=== PATIENT | female | born 1950 | race Caucasian/White ===

== ENCOUNTER 2018-04-21 17:20 | Emergency (ER) | payer MEDICARE, OTHER ==
[2018-04-21 18:27] LABS: BILIRUBIN,URINE NEGATIVE (NEGATIVE); GLUCOSE, URINE (UA) NEGATIVE (NEGATIVE); KETONES,URINE (UA) NEGATIVE (NEGATIVE); LEUKOCYTE ESTERASE, URINE SMALL (NEGATIVE); NITRITE,URINE NEGATIVE (NEGATIVE); OCCULT BLOOD,URINE NEGATIVE (NEGATIVE); PH,URINE 5.5 PH (5.0-7.5); PROTEIN,URINE NEGATIVE (NEGATIVE); UROBILINOGEN,URINE 0.2 (NORMAL) E.U./dL (NORMAL)
[2018-04-21 18:28] LABS: CLARITY,URINE CLEAR (CLEAR)
[2018-04-21 18:44] LABS: RBC,URINE 0-5 /HPF (0-5); SQUAMOUS EPITHELIAL CELL,UR FEW Squamous (<= Few)
[2018-04-21 18:45] LABS: BACTERIA,URINE Rare /HPF (None Seen)
--- NOTE | 2018-04-21 18:49 | ED Physician Documentation ---
PD HPI NVD - Stated complaint Stated Complaint: VOM/TONI - Chief complaint Chief Complaint: Abd Pain - History obtained from History obtained from: Patient, Family - History of Present Illness Timing - onset: Yesterday (This is a 67-year-old woman with history of multiple myeloma undergoing chemotherapy and also type 2 diabetes on Lantus who presents with a days worth of vomiting and diarrhea. There is no associated abdominal pain or fevers. She feels generally weak.) Review of Systems Ten Systems: 10 systems reviewed and negative Constitutional: reports: Fatigue, Sweats. denies: Fever, Chills Respiratory: denies: Dyspnea, Cough GI: reports: Nausea, Vomiting, Diarrhea. denies: Abdominal Pain PD PAST MEDICAL HISTORY - Past Medical History Cardiovascular: Hypertension, High cholesterol Respiratory: None Endocrine/Autoimmune: Type 2 diabetes, HyPOthyroidism GI: None G[employer]: None : None HEENT: None Psych: None Musculoskeletal: None Derm: None - Past Surgical History Past Surgical History: No Ortho: Arthroscopic surgery - Present Medications Home Medications: Ambulatory Orders Medication Instructions Recorded Confirmed Insulin Glargine,Hum.rec.anlog 32 unit SQ QPM 12/09/12 01/08/16 [Lantus] oxyCODONE [Roxicodone] 5 - 10 mg PO Q6H PRN #30 tablet 12/09/12 01/08/16 diphenhydrAMINE [Benadryl] 25 mg PO Q4HR PRN #10 capsule 01/09/16 Cephalexin [Keflex] 500 mg PO QID #28 capsule 04/21/18 Dexamethasone 04/21/18 04/21/18 Dulaglutide [Trulicity] 04/21/18 Lenalidomide [Revlimid] 04/21/18 Loperamide [Imodium] 2 mg PO QID PRN #10 capsule 04/21/18 Ondansetron Odt [Zofran] 4 mg TL Q6H PRN #10 tablet 04/21/18 metFORMIN [Glucophage] 04/21/18 04/21/18 - Allergies Allergies/Adverse Reactions: Allergies Allergy/AdvReac Type Severity Reaction Status Date / Time No Known Drug Allergies Allergy Verified 04/21/18 17:49 - Social History Does the pt smoke?: No Smoking Status: Never smoker Does the pt drink ETOH?: No Does the pt have substance abuse?: No - Immunizations Immunizations are current?: No Immunizations: Other immun not current - POLST Patient has POLST: No PD ED PE NORMAL - Vitals Vital signs reviewed: Yes - General General: Alert and oriented X 3, No acute distress - HEENT HEENT: PERRL, EOMI - Neck Neck: Supple, no meningeal sign, No bony TTP - Cardiac Cardiac: RRR, No murmur - Respiratory Respiratory: No respiratory distress, Clear bilaterally - Abdomen Abdomen: Soft, Non tender - Neuro Neuro: Alert and oriented X 3, Normal speech Results - Vitals Vitals: Vital Signs - 24 hr 04/21/18 17:47 Temperature 36.9 C Heart Rate 95 Respiratory 15 Rate Blood Pressure 131/91 H O2 Saturation 96 Oxygen O2 Source Room air - Labs Labs: Laboratory Tests 04/21/18 04/21/18 04/21/18 18:00 19:10 19:20 WBC 3.7 L RBC 4.06 L Hgb 13.4 Hct 39.3 MCV 96.9 MCH 33.1 H MCHC 34.2 RDW 16.9 H Plt Count 171 MPV 8.1 Neut # (Auto) 1.6 Lymph # (Auto) 1.2 L [place] # (Auto) 0.6 Eos # (Auto) 0.3 Baso # (Auto) 0.0 Absolute Nucleated RBC 0.00 Nucleated RBC % 0.0 Sodium 133 L Potassium 3.4 L Chloride 97 L Carbon Dioxide 27 Anion Gap 9.0 BUN 21 H Creatinine 1.0 Estimated GFR (MDRD) 56 L Glucose 158 H Calcium 8.8 Total Bilirubin 0.7 AST 20 ALT 26 Alkaline Phosphatase 47 Total Protein 6.3 L Albumin 3.7 Globulin 2.6 Albumin/Globulin Ratio 1.4 Lipase 68 H Urine Color YELLOW Urine Clarity CLEAR Urine pH 5.5 Ur Specific [place] 1.020 Urine Protein NEGATIVE Urine Glucose (UA) NEGATIVE Urine Ketones NEGATIVE Urine Occult Blood NEGATIVE Urine Nitrite NEGATIVE Urine Bilirubin NEGATIVE Urine Urobilinogen 0.2 (NORMAL) Ur Leukocyte Esterase SMALL H Urine RBC 0-5 Urine WBC 6-10 H Ur Squamous Epith Cells FEW Squamous Urine Bacteria Rare Ur Microscopic Review INDICATED Urine Culture Comments INDICATED PD MEDICAL DECISION MAKING - ED course ED course: This is a 67-year-old woman undergoing chemotherapy presents with vomiting and diarrhea without abdominal pain. She has a benign abdominal examination. After the administration of IV fluids she was still feeling a little weak but the nausea and diarrhea had abated and she passed an oral challenge. Departure - Departure Disposition: 01 Home, Self Care Clinical Impression: Vomiting, Diarrhea, Urinary tract infection Condition: Good Record reviewed to determine appropriate education?: Yes Instructions: ED Nausea Vomiting Prescriptions: Cephalexin [Keflex] 500 mg PO QID #28 capsule Loperamide [Imodium] 2 mg PO QID PRN #10 capsule PRN Reason: Diarrhea Ondansetron Odt [Zofran] 4 mg TL Q6H PRN #10 tablet PRN Reason: Nausea / Vomiting Comments: We will culture your urine, the results should be done in 48-72 hours. If an antibiotic change is necessary we will call you. Return if worse in the meantime, especially if you develop increasing flank pain, fevers, or cannot keep down the medication.
[2018-04-21] MEDS: SODIUM CHLORIDE 0.9% 1,000 ML IV ONE (19:13)
[2018-04-21] MEDS: ONDANSETRON 4 MG/2 ML VIAL IVP STA (19:14)
[2018-04-21] MEDS: cefTRIAXone 1 GM VIAL IVP STA (19:14)
[2018-04-21] MEDS: LOPERAMIDE 2 MG CAPSULE PO STA (19:14)
[2018-04-21 19:29] LABS: BASOPHILS % (AUTO) 1.1 %; EOSINOPHILS # (AUTO) 0.3 10^3/uL (0.0-0.7); EOSINOPHILS % (AUTO) 8.6 %; HGB - HEMOGLOBIN 13.4 g/dL (12.0-16.0); LYMPHOCYTES # (AUTO) 1.2 10^3/uL (1.5-3.5); LYMPHOCYTES % (AUTO) 31.3 %; MEAN CORPUSCULAR HEMOGLOBIN 33.1 pg (27.0-31.0); MEAN CORPUSCULAR HGB CONC 34.2 g/dL (32.0-36.0); MEAN CORPUSCULAR VOLUME 96.9 fL (81.0-99.0); MEAN PLATELET VOLUME 8.1 fL (7.9-10.8); MONOCYTES # (AUTO) 0.6 10^3/uL (0.0-1.0); MONOCYTES % (AUTO) 16.2 %; NEUTROPHILS # (AUTO) 1.6 10^3/uL (1.5-6.6); NEUTROPHILS % (AUTO) 42.8 %; PLT - PLATELET COUNT 171 10^3/uL (130-450); RED BLOOD COUNT 4.06 10^6/uL (4.20-5.40); RED CELL DISTRIBUTION WIDTH 16.9 % (12.0-15.0); WHITE BLOOD COUNT 3.7 x10^3/uL (4.8-10.8)
[2018-04-21 19:46] LABS: ALBUMIN 3.7 g/dL (3.2-5.5); ALBUMIN/GLOBULIN RATIO 1.4 (1.0-2.2); BILIRUBIN,TOTAL 0.7 mg/dL (0.2-1.0); CALCIUM 8.8 mg/dL (8.5-10.3); TOTAL PROTEIN 6.3 g/dL (6.7-8.2)
[2018-04-21] MEDS: ONDANSETRON ODT 4 MG Prepack 2 TL STA (21:13)
[2018-04-21 21:14] VITALS: BP 122/79
== END 2018-04-21 21:13 | disposition home or self-care (01) ==
LOC: ED 17:20
DX: R11.10 Vomiting, unspecified (principal); R19.7 Diarrhea, unspecified; N39.0 Urinary tract infection, site not specified; C90.00 Multiple myeloma not having achieved remission; Z92.21 Personal history of antineoplastic chemotherapy; E11.9 Type 2 diabetes mellitus without complications; Z79.4 Long term (current) use of insulin; E03.9 Hypothyroidism, unspecified
CPT/HCPCS: 36415; 80053; 81001; 83690; 85025; 87086; 96361; 96374; 99283; A9270; 81003